=== PATIENT | female | born 1935 | race Caucasian/White ===

== ENCOUNTER 2016-03-11 11:55 | Emergency (ER) | payer MEDICARE ==
[~2016-03-11] VITALS: Ht 162.6 cm; Wt 72.6 kg
[~2016-03-11 11:55] MED LIST: ACHD5005 PO; AMOX-355 PO; BIOT5TAB PO; BPR150TCR PO; CALTRATE 600 +1 EACH PO; D-3 PO; LECITHIN PO; LOVA10TA PO; LUTE10TA PO; LVT.025T PO; LYSI600T PO; MAGNESIUM WITH ZINC PO; OMEG-12 PO; [UNRECOGNIZED DRUG - OTHER] PO
[2016-03-11] MEDS ORDERED: NS 1000 ML IV BAG IV ONE (12:15)
[2016-03-11] MEDS ORDERED: RT-ALBUTEROL/IPRATROPIUM 3 ML (DUONEB) VIAL INH ONE (12:15)
--- NOTE | 2016-03-11 12:15 | ED General ---
General Chief Complaint: Cough/Cold/Flu Symptoms Stated Complaint: COUGH/COLD/FLU SYMPTOMS Nursing Triage Note: PT C/O COUGH/CONGESTION/SOA X 1 WEEK. SHE STATES SHE HAS BEEN TAKING CEFTIN X 4 DAYS, BUT IS NOT GETTING BETTER. Nursing Sepsis Screen: No Definite Risk Source of Information: Patient, Family Exam Limitations: No Limitations History of Present Illness Time Seen by Provider: 12:14 Initial Comments Patient has been sick with a cough and congestion for one week. She was seen at urgent care a few days ago and prescribed Ceftin. She is only getting worse. She denies fevers or chills. She denies nausea vomiting or diarrhea. She is dyspneic. She denies chest pain. Allergies and Home Medications Allergies Coded Allergies: Soap (Verified Allergy, Intermediate, 10/12/11) blisters from topical application povidone-iodine (Verified Allergy, Intermediate, 10/12/11) blisters from topical application Iodine (Verified Allergy, Unknown, 10/09/11) Sulfa(Sulfonamide Antibiotics) (Verified Allergy, Unknown, 10/09/11) Home Medications 1 TAB PO DAILY (Reported) 1,000 MG PO DAILY (Reported) 400 MG PO DAILY (Reported) 1 TAB PO DAILY (Reported) Biotin 5 Mg Tablet 1,000 MG PO DAILY (Reported) Bupropion Hcl 150 Mg Tablet 1 TAB PO BID (Reported) Calcium Carbonate/Vitamin D3 1 Each Tab.chew 1 EACH PO TID (Reported) Levothyroxine Sodium 25 Mcg Tab 75 MCG PO DAILY (Reported) Lutein 10 Mg Tablet 6 MG PO DAILY (Reported) Lysine 600 Mg Tablet 500 MG PO DAILY (Reported) [place]-3/Dha/Epa/Fish Oil 1 Each Capsule.dr 2 EACH PO DAILY (Reported) Constitutional: No chills, No fever, malaise weakness EENTM: nose congestion Respiratory: cough short of breath Cardiovascular: no symptoms reported Gastrointestinal: no symptoms reported Genitourinary: no symptoms reported All Other Systems Reviewed Negative Unless Noted: Yes Past Promanb-Exukgf-Fyvdai Hx Patient Social History Alcohol Use: Denies Use Recreational Drug Use: No Smoking Status: Former Smoker Recent Foreign Travel: No Contact w/Someone Who Travel: No Recent Infectious Disease Expo: No Recent Hopitalizations: No Physical Abuse Screen: No Sexual Abuse: No Immunizations Up To Date Tetanus Booster (TDap): More than 5yrs Date of Pneumonia Vaccine: Dec 26, 2011 Date of Influenza Vaccine: Dec 09, 2015 Surgeries HX Surgeries: Yes (R rotator cuff, d&c, ) Surgeries: Appendectomy, Arteriovenous Shunt Respiratory Hx Respiratory Disorders: No Cardiovascular Hx Cardiac Disorders: Yes Neurological Hx Neurological Disorders: Yes Genitourinary Hx Genitourinary Disorders: No Gastrointestinal Hx Gastrointestinal Disorders: No Musculoskeletal Hx Musculoskeletal Disorders: Yes (GENERALIZED PAIN ALL THE TIME) Endocrine Hx Endocrine Disorders: Yes Endocrine Disorders: Hypothyroidsim HEENT HX ENT Disorders: Yes HEENT Disorders: Cataract Psychosocial Hx Psychiatric Problems: Yes Blood Transfusions Hx Blood Disorders: No Reviewed Nursing Assessment Reviewed/Agree w Nursing PMH: Yes Physical Exam Vital Signs Vital Sign - Last 12Hours Capillary Refill : Less Than 3 Seconds General Appearance: WD/WN Mild Distress Other (ill-appearing) Eyes: Bilateral Eye EOMI, Bilateral Eye PERRL HEENT: Pharyngeal ErythemaNo Tonsillar Exudate, No Tonsillar Enlargement Neck: Supple Respiratory: Expiration Rales (rales left base) Wheezing Other (tachypnea) Cardiovascular: Regular Rate, Rhythm No Edema Gastrointestinal: Soft Back: Normal Inspection Extremity: Normal Inspection Normal Range of Motion Neurologic/Psychiatric: Alert Oriented x3 No Motor/Sensory Deficits Skin: Damp (warm) Progress/Results/Core Measures Results/Orders Lab Results Labs were reviewed, influenza negative Laboratory Tests Test 03/11/16 12:20 03/11/16 13:07 Range/Units Alanine Aminotransferase (ALT/SGPT) 15 0-55 U/L Albumin 3.3 3.2-4.5 G/DL Alkaline Phosphatase 48 40-136 U/L Anion Gap 8 5-14 MMOL/L Aspartate Amino Transf (AST/SGOT) 16 5-34 U/L BUN/Creatinine Ratio 16 Basophils # (Auto) 0.0 0.0-0.1 10^3/uL Basophils (%) (Auto) 0 0-10 % Blood Urea Nitrogen 14 7-18 MG/DL Calcium Level 8.9 8.5-10.1 MG/DL Carbon Dioxide Level 23 21-32 MMOL/L Chloride Level 107 98-107 MMOL/L Creatinine 0.89 0.60-1.30 MG/DL Eosinophils # (Auto) 0.1 0.0-0.3 10^3/uL Eosinophils (%) (Auto) 1 0-10 % Estimat Glomerular Filtration Rate > 60 Glucose Level 93 70-105 MG/DL Hematocrit 36 35-52 % Hemoglobin 12.2 11.5-16.0 G/DL Lactic Acid Level 0.9 0.5-2.0 MMOL/L Lymphocytes # (Auto) 2.2 1.0-4.0 X 10^3 Lymphocytes (%) (Auto) 19 12-44 % Mean Corpuscular Hemoglobin 30 25-34 PG Mean Corpuscular Hemoglobin Concent 34 32-36 G/DL Mean Corpuscular Volume 87 80-99 FL Mean Platelet Volume 10.0 7.4-10.4 FL Monocytes # (Auto) 1.3 H 0.0-1.0 X 10^3 Monocytes (%) (Auto) 12 0-12 % Neutrophils # (Auto) 8.1 H 1.8-7.8 X 10^3 Neutrophils (%) (Auto) 69 42-75 % Platelet Count 384 130-400 10^3/uL Potassium Level 3.8 3.6-5.0 MMOL/L Red Blood Count 4.14 L 4.35-5.85 10^6/uL Red Cell Distribution Width 15.3 H 10.0-14.5 % Sodium Level 138 135-145 MMOL/L Total Bilirubin 0.4 0.1-1.0 MG/DL Total Protein 6.9 6.4-8.2 G/DL White Blood Count 11.7 H 4.3-11.0 10^3/uL Micro Results Microbiology 03/11/16 Influenza Types A,B Antigen (REBECCA) - Final, Complete My Orders Orders-GOLDIE PEREIRA MD Influenza A And B Antigens (03/11/16 12:00) Cbc With Automated Diff (03/11/16 12:11) Comprehensive Metabolic Panel (03/11/16 12:11) Lactic Acid Analyzer (03/11/16 12:11) Ua Culture If Indicated (03/11/16 12:11) Chest 1 View, Ap/Pa Only (03/11/16 12:11) Albuterol/Ipra Inhalation Soln (Duoneb I (03/11/16 12:15) Svn Sm Volume Nebulizer Rt-Rfs (03/11/16 12:11) Blood Culture (03/11/16 12:11) Ns Iv 1000 Ml (Sodium Chloride 0.9%) (03/11/16 12:15) Acetaminophen Tablet (Tylenol Tablet) (03/11/16 12:30) Saline Lock/Iv-Start (03/11/16 12:32) Ceftriaxone Injection (Rocephin Injectio (03/11/16 13:15) Medications Given in ED Current Medications Medications Dose Ordered Sig/Enmanuel Route Start Time Stop Time Status Last Admin Dose Admin Acetaminophen 1,000 mg ONCE ONCE PO 03/11/16 12:30 03/11/16 12:31 DC 03/11/16 12:30 1,000 MG Albuterol/ Ipratropium 3 ml ONCE ONCE INH 03/11/16 12:15 03/11/16 12:16 DC 03/11/16 12:32 3 ML Sodium Chloride 1,000 ml ONCE ONCE IV 03/11/16 12:15 03/11/16 12:16 DC 03/11/16 12:30 1,000 ML Vital Signs/I&O Vital Sign - Last 12Hours 03/11/16 03/11/16 03/11/16 12:00 12:00 12:32 Temp 97.6 Pulse 77 Resp 20 B/P 128/63 Pulse Ox 94 94 O2 Delivery Room Air Room Air Blood Pressure Mean: 84 Progress Note : Time: 13:20 Progress Note Patient says she feels better and was actually asleep while energy room. She does not look much better to me and seems to be having some labored respirations. I recommended admission to the hospital. Patient adamantly refused. I spoke with Dr. Sanz who will see the patient in the morning. Diagnostic Imaging Comments Chest x-ray showed nothing acute Departure Impression Impression: Primary Impression: Acute bronchitis Qualified Code: J20.9 - Acute bronchitis, unspecified Disposition: 01 HOME, SELF-CARE Condition: Stable Departure-Patient Inst. Decision time for Depature: 13:19 Referrals: HUGO SANZ MD (PCP/Family) Primary Care Physician Patient Instructions: Acute Bronchitis, Adult (DC) Add. Discharge Instructions: See Dr. Sanz tomorrow at 11 a.m. Stop Ceftin. All discharge instructions reviewed with patient and/or family. Voiced understanding. Scripts Azithromycin (Zithromax)250 Mg [id number] Mg PO UD #6 TAB TAKE 2 TABLETS TODAY, THEN TAKE 1 TABLET DAILY FOR 4 MORE DAYS Prov:GOLDIE PEREIRA MD 03/11/16 Albuterol Sulfate (Proair Hfa)8.5 Gm Hfa.aer.ad1-2 Puff IH Q4H PRN WHEEZING #1 INH Prov:GOLDIE PEREIRA MD 03/11/16 GOLDIE PEREIRA MD Mar 11, 2016 12:15
[2016-03-11] MEDS ORDERED: ACETAMINOPHEN 500 MG TAB (TYLENOL) PO ONE (12:30)
[2016-03-11 12:31] LABS: BASOPHILS % (AUTO) 0 % (0-10); EOSINOPHILS # (AUTO) 0.1 10^3/uL (0.0-0.3); EOSINOPHILS % (AUTO) 1 % (0-10); LYMPHOCYTES # (AUTO) 2.2 X 10^3 (1.0-4.0); LYMPHOCYTES % (AUTO) 19 % (12-44); MEAN CORPUSCULAR HEMOGLOBIN 30 PG (25-34); MEAN CORPUSCULAR HGB CONC 34 G/DL (32-36); MEAN CORPUSCULAR VOLUME 87 FL (80-99); MONOCYTES # (AUTO) 1.3 X 10^3 (0.0-1.0); MONOCYTES % (AUTO) 12 % (0-12); NEUTROPHILS # (AUTO) 8.1 X 10^3 (1.8-7.8); NEUTROPHILS % (AUTO) 69 % (42-75); PLATELET COUNT 384 10^3/uL (130-400); RED BLOOD COUNT 4.14 10^6/uL (4.35-5.85); RED CELL DISTRIBUTION WIDTH 15.3 % (10.0-14.5); WHITE BLOOD COUNT 11.7 10^3/uL (4.3-11.0)
[2016-03-11 12:53] LABS: ALANINE AMINOTRANSFERASE 15 U/L (0-55); ALBUMIN 3.3 G/DL (3.2-4.5); ANION GAP 8 MMOL/L (5-14); ASPARTATE AMINO TRANSFERASE 16 U/L (5-34); BILIRUBIN,TOTAL 0.4 MG/DL (0.1-1.0); BLOOD UREA NITROGEN 14 MG/DL (7-18); BUN/CREATININE RATIO 16; CALCIUM 8.9 MG/DL (8.5-10.1); CARBON DIOXIDE 23 MMOL/L (21-32); CHLORIDE 107 MMOL/L (98-107); CREATININE SERUM 0.89 MG/DL (0.60-1.30); GFR ESTIMATED > 60; GLUCOSE 93 MG/DL (70-105); POTASSIUM 3.8 MMOL/L (3.6-5.0); SODIUM 138 MMOL/L (135-145); TOTAL PROTEIN 6.9 G/DL (6.4-8.2)
--- NOTE | 2016-03-11 13:07 | Diagnostic Imaging Report ---
Portable upright radiograph of the chest. INDICATION: Cough. FINDINGS: The lungs demonstrate interstitial thickening less prominent compared to 10/13/2011 exam, probably chronic. There is pulmonary hyperinflation. The heart size is near the upper limits of normal. No effusion or pneumothorax. The mediastinum and selena appear unremarkable. Shunt tube is seen across the right thorax. IMPRESSION: No acute process. Dictated by: Dictated on workstation # [id number]
[2016-03-11 13:14] LABS: BILIRUBIN,URINE NEGATIVE (NEGATIVE); KETONES,URINE NEGATIVE (NEGATIVE); LEUKOCYTE ESTERASE ,URINE 2+ (NEGATIVE); NITRITE,URINE NEGATIVE (NEGATIVE); PH,URINE 6.5 (5-9); PROTEIN,URINE NEGATIVE (NEGATIVE); UROBILINOGEN,URINE NORMAL (NORMAL)
[2016-03-11] MEDS ORDERED: cefTRIAXone INJECTION 1,000 MG in NORMAL SALINE (BAXTER MINI) 50 ML IV ONE (13:15)
[2016-03-11] MEDS ORDERED: RT-ALBUINH IH (13:20)
[2016-03-11] MEDS ORDERED: AZIT250T PO (13:20)
[2016-03-11 13:27] LABS: SQUAMOUS EPITHELIAL CELL,UR 0-2 /HPF; WBC,URINE 0-2 /HPF
[2016-03-11 13:58] VITALS: BP 125/70
== END 2016-03-11 13:58 | disposition home or self-care (01) ==
LOC: EDUNIT# 11:55 → ER 11:57
DX: J20.9 Acute bronchitis, unspecified (principal)
CPT/HCPCS: 36415; 71010; 80053; 81000; 83605; 85025; 87040; 87804; 96361; 96365

== ENCOUNTER 2017-08-08 16:44 | Emergency (ER) | payer MEDICARE ==
[~2017-08-08] VITALS: Ht 167.6 cm; Wt 77.1 kg
[~2017-08-08 16:44] MED LIST changes: +AZIT250T PO; +RT-ALBUINH IH
[2017-08-08 17:46] LABS: BASOPHILS % (AUTO) 0 % (0-10); EOSINOPHILS % (AUTO) 0 % (0-10); HEMATOCRIT 39 % (35-52); HEMOGLOBIN 13.2 G/DL (11.5-16.0); LYMPHOCYTES % (AUTO) 10 % (12-44); MEAN CORPUSCULAR HEMOGLOBIN 31 PG (25-34); MEAN CORPUSCULAR HGB CONC 34 G/DL (32-36); MEAN CORPUSCULAR VOLUME 90 FL (80-99); MEAN PLATELET VOLUME 10.4 FL (7.4-10.4); MONOCYTES % (AUTO) 11 % (0-12); NEUTROPHILS # (AUTO) 7.9 X 10^3 (1.8-7.8); NEUTROPHILS % (AUTO) 80 % (42-75); PLATELET COUNT 294 10^3/uL (130-400); RED CELL DISTRIBUTION WIDTH 14.8 % (10.0-14.5); WHITE BLOOD COUNT 9.9 10^3/uL (4.3-11.0)
[2017-08-08] MEDS ORDERED: ONDANSETRON 4 MG/2 ML (SDV) Z0FRAN IVP ONE (18:00)
[2017-08-08 18:05] LABS: INR 1.1 (0.8-1.4); PROTHROMBIN TIME PATIENT 14.5 SEC (12.2-14.7)
[2017-08-08 18:14] LABS: ALBUMIN 4.2 GM/DL (3.2-4.5); BILIRUBIN,TOTAL 0.4 MG/DL (0.1-1.0); CREATININE SERUM 1.18 MG/DL (0.60-1.30); POTASSIUM 4.4 MMOL/L (3.6-5.0); TOTAL PROTEIN 7.7 GM/DL (6.4-8.2)
--- NOTE | 2017-08-08 18:22 | ED Respiratory ---
General Chief Complaint: Abdominal/GI Problems Stated Complaint: N/V Nursing Triage Note: Pt escorted to ED by son and ; chief c/o N/V along with stomach bloating, dizzy (chronic vertigo like sx) and cough. History of Present Illness Date Seen by Provider: Aug 08, 2017 Time Seen by Provider: 17:30 Initial Comments 82-year-old female seen for vertigo, nausea, vomiting and productive cough. She reports her symptoms of been progressively getting worse. Today her nausea and vertigo were significant enough that it required her son and his to assist her with ambulating out of the house. 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 Leon in [place], [place]. Timing/Duration: getting worse Severity: mild Prior Episodes/Possible Cause: occasional episodes Modifying Factors: Improves With Rest Associated Symptoms: cough, dizziness, earache, headache, lightheadedness, nasal congestion, nasal drainage, sore throat, other (urinary frequency and dysuria) Allergies and Home Medications Allergies Coded Allergies: Soap (Verified Allergy, Intermediate, 10/12/11) blisters from topical application povidone-iodine (Verified Allergy, Intermediate, 10/12/11) blisters from topical application Sulfa (Sulfonamide Antibiotics) (Verified Allergy, Unknown, 10/09/11) iodine (Verified Allergy, Unknown, 10/09/11) Home Medications Albuterol Sulfate 8.5 Gm Hfa.aer.ad, 1-2 PUFF IH Q4H PRN for WHEEZING Prescribed by: GOLDIE PEREIRA on 03/11/16 1320 Amoxicillin/Potassium Clav 1 Each Tablet, 1 EACH PO BID Prescribed by: INDU HIGGINS on 08/08/17 1939 Biotin 5 Mg Tablet, 1,000 MG PO DAILY, (Reported) Bupropion Hcl 150 Mg Tablet, 1 TAB PO BID, (Reported) Calcium Carbonate/Vitamin D3 1 Each Tab.chew, 1 EACH PO TID, (Reported) Levothyroxine Sodium 25 Mcg Tab, 75 MCG PO DAILY, (Reported) Lutein 10 Mg Tablet, 6 MG PO DAILY, (Reported) Lysine 600 Mg Tablet, 500 MG PO DAILY, (Reported) [place]-3/Dha/Epa/Fish Oil 1 Each Capsule.dr, 2 EACH PO DAILY, (Reported) Prednisone 20 Mg Tab, 40 MG PO DAILY Prescribed by: INDU HIGGINS on 08/08/171938 [D-3] , 1,000 MG PO DAILY, (Reported) [E 200] , 1 TAB PO DAILY, (Reported) [Lecithin] , 400 MG PO DAILY, (Reported) [Magnesium With Zinc] , 1 TAB PO DAILY, (Reported) Patient Home Medication List Home Medication List Reviewed: Yes Review of Systems Constitutional: no symptoms reported, see HPI Respiratory: see HPI, cough Genitourinary: see HPI, dysuria, frequency Musculoskeletal: no symptoms reported, see HPI Psychiatric/Neurological: No Symptoms Reported, See HPI All Other Systems Reviewed Negative Unless Noted: Yes Past Nvhsrmx-Lcpevt-Gqkjun Hx Past Med/Social Hx: Reviewed Nursing Past Med/Soc Hx Patient Social History Alcohol Use: Denies Use Recreational Drug Use: No Smoking Status: Never a Smoker 2nd Hand Smoke Exposure: No Recent Foreign Travel: No Contact w/Someone Who Travel: No Recent Infectious Disease Expo: No Recent Hopitalizations: No Immunizations Up To Date Tetanus Booster (TDap): More than 5yrs Date of Pneumonia Vaccine: Dec 26, 2011 Date of Influenza Vaccine: Dec 09, 2015 Seasonal Allergies Seasonal Allergies: No Past Medical History Surgeries: Yes (R rotator cuff, d&c, ) Appendectomy, Arteriovenous Shunt Respiratory: No Cardiac: Yes High Cholesterol 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) Genitourinary: Yes (CKD) Gastrointestinal: No Musculoskeletal: Yes (chronic generalized pain) Endocrine: Yes Hypothyroidsim Cataract Cancer: No Psychosocial: Yes Depression Integumentary: No Blood Disorders: No Adverse Reaction/Blood Tranf: No Physical Exam Vital Signs Vital Signs - First Documented 08/08/17 08/08/17 17:10 17:30 Temp 100.3 Pulse 92 Resp 18 B/P (MAP) 129/66 (87) Pulse Ox 92 O2 Delivery Room Air O2 Flow Rate 2.00 FiO2 95 Capillary Refill : Less Than 3 Seconds General Appearance: WD/WN, no apparent distress Eyes: Left Eye Other (scar noted to left pupil, patient reports it has been there since she was 8 years old and does not interfere with vision.); Bilateral Eye Normal Inspection, Bilateral Eye PERRL, Bilateral Eye EOMI HEENT: PERRL/EOMI, normal ENT inspection, pharynx normal, TM abnormal (R), TM abnormal (L), pharyngeal erythema; No tonsillar exudate; other (bilateral TMs with clear effusion present) Neck: non-tender, full range of motion, supple, normal inspection; No lymphadenopathy (R), No lymphadenopathy (L) Respiratory: chest non-tender, lungs clear, normal breath sounds Cardiovascular: normal peripheral pulses, regular rate, rhythm, no murmur Gastrointestinal: normal bowel sounds, non tender, soft Neurologic/Psychiatric: 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 as tested, no motor/sensory deficits, alert, normal mood/affect, oriented x 3 Skin: normal color, warm/dry Lymphatic: no adenopathy Focused Exam Lactate Level 08/08/17 17:30: Lactic Acid Level 1.30 Lactic Acid Level Laboratory Tests Test 08/08/17 17:30 Lactic Acid Level 1.30 MMOL/L (0.50-2.00) Progress/Results/Core Measures Suspected Sepsis Recent Fever Within 48 Hours: Yes Infection Criteria Present: Suspected New Infection New/Unexplained Altered Menta: No Sepsis Screen: Possible Sepsis Risk SIRS Temperature:100.3 Pulse: 92 Respiratory Rate: 18 Laboratory Tests 08/08/17 17:30: White Blood Count 9.9 Blood Pressure 129 /66 Mean: 87 08/08/17 17:30: Lactic Acid Level 1.30 Laboratory Tests 08/08/17 17:30: Creatinine 1.18, INR Comment 1.1, Platelet Count 294, Total Bilirubin 0.4 Results/Orders Lab Results Laboratory Tests Test 08/08/17 17:30 08/08/17 18:23 Range/Units White Blood Count 9.9 4.3-11.0 10^3/uL Red Blood Count 4.30 L 4.35-5.85 10^6/uL Hemoglobin 13.2 11.5-16.0 G/DL Hematocrit 39 35-52 % Mean Corpuscular Volume 90 80-99 FL Mean Corpuscular Hemoglobin 31 25-34 PG Mean Corpuscular Hemoglobin Concent 34 32-36 G/DL Red Cell Distribution Width 14.8 H 10.0-14.5 % Platelet Count 294 130-400 10^3/uL Mean Platelet Volume 10.4 7.4-10.4 FL Neutrophils (%) (Auto) 80 H 42-75 % Lymphocytes (%) (Auto) 10 L 12-44 % Monocytes (%) (Auto) 11 0-12 % Eosinophils (%) (Auto) 0 0-10 % Basophils (%) (Auto) 0 0-10 % Neutrophils # (Auto) 7.9 H 1.8-7.8 X 10^3 Lymphocytes # (Auto) 1.0 1.0-4.0 X 10^3 Monocytes # (Auto) 1.0 0.0-1.0 X 10^3 Eosinophils # (Auto) 0.0 0.0-0.3 10^3/uL Basophils # (Auto) 0.0 0.0-0.1 10^3/uL Prothrombin Time 14.5 12.2-14.7 SEC INR Comment 1.1 0.8-1.4 Activated Partial Thromboplast Time 34 24-35 SEC Sodium Level 136 135-145 MMOL/L Potassium Level 4.4 3.6-5.0 MMOL/L Chloride Level 104 98-107 MMOL/L Carbon Dioxide Level 18 L 21-32 MMOL/L Anion Gap 14 5-14 MMOL/L Blood Urea Nitrogen 12 7-18 MG/DL Creatinine 1.18 0.60-1.30 MG/DL Estimat Glomerular Filtration Rate 44 BUN/Creatinine Ratio 10 Glucose Level 141 H 70-105 MG/DL Lactic Acid Level 1.30 0.50-2.00 MMOL/L Calcium Level 9.0 8.5-10.1 MG/DL Total Bilirubin 0.4 0.1-1.0 MG/DL Aspartate Amino Transf (AST/SGOT) 26 5-34 U/L Alanine Aminotransferase (ALT/SGPT) 19 0-55 U/L Alkaline Phosphatase 66 40-136 U/L Total Protein 7.7 6.4-8.2 GM/DL Albumin 4.2 3.2-4.5 GM/DL Urine Color YELLOW Urine Clarity CLEAR Urine pH 5 5-9 Urine Specific [place] 1.020 1.016-1.022 Urine Protein 2+ H NEGATIVE Urine Glucose (UA) NEGATIVE NEGATIVE Urine Ketones 3+ H NEGATIVE Urine Nitrite NEGATIVE NEGATIVE Urine Bilirubin NEGATIVE NEGATIVE Urine Urobilinogen NORMAL NORMAL MG/DL Urine Leukocyte Esterase NEGATIVE NEGATIVE Urine RBC (Auto) 1+ H NEGATIVE Urine RBC 10-25 H /HPF Urine WBC 2-5 /HPF Urine Squamous Epithelial Cells RARE /HPF Urine Renal Epithelial Cells NONE /HPF Urine Crystals NONE /LPF Urine Bacteria TRACE /HPF Urine Casts PRESENT /LPF Urine Hyaline Casts 5-10 H /LPF Urine Granular Casts RARE /LPF Urine Mucus LARGE H /LPF Urine Culture Indicated NO My Orders Orders - INDU HIGGINS Cbc With Automated Diff (08/08/17 17:40) Comprehensive Metabolic Panel (08/08/17 17:40) Lactic Acid Analyzer (08/08/17 17:40) Blood Culture (08/08/17 17:40) Ua Culture If Indicated (08/08/17 17:40) Protime With Inr (08/08/17 17:40) Partial Thromboplastin Time (08/08/17 17:40) Chest 1 View, Ap/Pa Only (08/08/17 17:40) O2 (08/08/17 17:40) Saline Lock/Iv-Start (08/08/17 17:40) Vital Signs Adult Sepsis Patie Q1H (08/08/17 17:40) Remove Rings In Anticipation O (08/08/17 17:40) Ondansetron Injection (Zofran Injectio (08/08/17 18:00) Ct Head Wo (08/08/17 18:10) Abdomen/Kub 1view (08/08/17 18:14) Meclizine Tablet (Antivert Tablet) (08/08/17 18:30) Rx-Albuterol Inhaler (Rx-Proair) (08/08/17 19:12) Rx-Amoxicillin/Clav Tab (Rx-Augmentin Ta (08/08/17 19:12) Saline Lock/Iv-Start (08/08/17 19:13) Ns Iv 500 Ml (Sodium Chloride 0.9%) (08/08/17 19:13) Dexamethasone Injection (Decadron Inject (08/08/17 19:15) Medications Given in ED Current Medications Medications Dose Ordered Sig/Enmanuel Route Start Time Stop Time Status Last Admin Dose Admin Dexamethasone Sodium Phosphate 10 mg ONCE ONCE IV 08/08/17 19:15 08/08/17 19:16 DC 08/08/17 19:22 10 MG Meclizine HCl 25 mg ONCE ONCE PO 08/08/17 18:30 08/08/17 18:31 DC 08/08/17 19:22 25 MG Ondansetron HCl 4 mg ONCE ONCE IVP 08/08/17 18:00 08/08/17 18:01 DC 08/08/17 18:08 4 MG Sodium Chloride 500 ml @ 0 mls/hr Q0M ONCE IV 08/08/17 19:13 08/08/17 19:14 DC 08/08/17 19:22 0 MLS/HR Vital Signs/I&O 08/08/17 08/08/17 08/08/17 08/08/17 17:10 17:30 20:05 20:05 Temp 100.3 99.1 99.1 Pulse 92 86 86 Resp 18 18 18 B/P (MAP) 129/66 (87) 125/50 (87) 125/50 Pulse Ox 92 95 96 96 O2 Delivery Room Air Nasal Cannula Room Air O2 Flow Rate 2.00 FiO2 95 Capillary Refill : Less Than 3 Seconds Blood Pressure Mean: 87 Progress Note : Time: 17:30 Progress Note Initial evaluation completed, recommended sepsis workup, CT head and x-rays of abdomen. Zofran 4 mg IV or nausea. Will hold on giving any IV fluids until CT results are completed. 1829 CT head negative, chest x-ray show right early consolidation in the lower lobe, abdomen x-ray shows no kinks in the SENIOR SHAREPOINT DEVELOPER shunt, results were discussed with the patient and her family. She reports the nausea has improved. She continues to have vertigo, will give meclizine 25 mg orally. 1914 UA shows positive ketones, will give normal saline 500 mL IV for hydration. Guest option for admission versus home treatment, the patient and her family felt they could manage at home. Her dizziness has improved, and her dcqqiuei-ip-sac is available to stay with her in her home to assist with her care. She understands the risk of falls and will take all precautions to prevent this from happening. 1929 discharge instructions and return precautions reviewed with the patient and her family. All questions answered. Diagnostic Imaging [facility]: Xray Plain Films/CT/US/NM/MRI: chest Comments NAME: JAIRO LINCOLN Jeannine [facility] REC#: [id number] PT STATUS: REG ER : 1935 PHYSICIAN: INDU HIGGINS ADMIT DATE: 08/08/17/ER Draft Date of Exam:08/08/17 CHEST 1 VIEW, AP/PA ONLY INDICATION: Nausea, vomiting, dizziness, cough. TECHNIQUE: Single view chest, 5:55 p.m. CORRELATION STUDY: 03/11/2016. FINDINGS: Heart size, mediastinum and vasculature are overall generally stable. Shunt tubing over the right chest. There may be a small hiatal hernia present. Lung gifford demonstrate slight patchy infiltrate developing over the right costophrenic angle. Remaining lung gifford are otherwise stable. IMPRESSION: Suspect for small patchy infiltrate developing in the right costophrenic angle. Dictated on workstation # [id number] Dict: 08/08/17 1811 Trans: 08/08/17 1829 [facility] [id number] Interpreted by: WILFRID PALOMO DO Electronically signed by: Diagonstic Imaging: CT Comments NAME: LATONIAJAIRO [employer] REC#: [id number] PT STATUS: REG ER : 1935 PHYSICIAN: INDU HIGGINS ADMIT DATE: 08/08/17/ER Draft Date of Exam:08/08/17 CT HEAD WO PROCEDURE: CT head without contrast. TECHNIQUE: Multiple contiguous axial images were obtained through the brain without the use of intravenous contrast. INDICATION: Dizziness. CORRELATION STUDY: 10/13/2011. FINDINGS: Since prior study, a shunt tube has been placed from the right parieto-occipital region. Shunt tubing courses through the majority of right lateral ventricle tip terminating near midline along the septum. The lateral ventricles are dilated, maximum transverse dimension is 3.9 cm, previously 4.4 cm. No midline shift. Scattered areas of decreased attenuation, while nonspecific, would favor likely changes of small vessel ischemic disease. No intracranial hemorrhage. Basilar cisterns are maintained. IMPRESSION: Interval placement of a right posterior shunt tube since prior study. Lateral ventricles are mildly dilated but overall appear less severe from prior imaging. Likely chronic changes of small vessel ischemic disease or senescent type changes of the brain parenchyma. Dictated on workstation # [id number] Dict: 08/08/17 1836 Trans: 08/08/17 1842 [facility] [id number] Interpreted by: WILFRID PALOMO DO Electronically signed by: Reviewed: Reviewed by Ri Diagonstic Imaging: Xray Plain Films/CT/US/NM/MRI: abdomen Comments NAME: JAIRO LINCOLN MED REC#: [id number] PT STATUS: REG ER : 1935 PHYSICIAN: INDU HIGGINS ADMIT DATE: 08/08/17/ER Draft Date of Exam:08/08/17 ABDOMEN/KUB 1VIEW INDICATION: Nausea, vomiting, dizziness. TECHNIQUE: Two supine view of the abdomen, 6:59 p.m. CORRELATION STUDY: None. FINDINGS: Shunt tubing is noted over the right abdomen, tip terminating in midline pelvis. Bowel gas pattern demonstrates mild severity fecal retention. No evidence for underlying bowel obstruction. Slight disproportionate gas distention of the transverse colon can be seen with regional ileus. 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 Dictated on workstation # [id number] Dict: 08/08/171846 Trans: 08/08/171853 [facility] [id number] Interpreted by: WILFRID PALOMO DO Electronically signed by: Reviewed: Reviewed by Me Departure Impression Primary Impression: Right lower lobe pneumonia Qualified Codes: J18.1 - Lobar pneumonia, unspecified organism Additional Impression: Vertigo Disposition: HOME, SELF-CARE Condition: Improved Departure-Patient Inst. Decision time for Depature: 19:15 Referrals: HUGO LOZADA MD (PCP/Family) Primary Care Physician Patient Instructions: Community-Acquired Pneumonia in Adults, Vertigo (a Type of Dizziness) (DC) Add. Discharge Instructions: Increase fluid intake. Change positions slowly, especially moving from lying to standing. Sit and stretch legs before standing. Continue to use your Meclizine for vertigo every 6 hours. Take medication as directed. You may use Tylenol 650 mg every 4 hours alternating with ibuprofen 600 mg for fever or pain. Follow-up with Dr. LOZADA in 2-3 days, sooner if symptoms are not improving. Use the inhaler 2 puffs every 4 hours. Return to emergency department for fever greater than 101 not relieved by Tylenol or ibuprofen, difficulty breathing, or new health care problems. All discharge instructions reviewed with patient and/or family. Voiced understanding. Scripts Prednisone (Prednisone) 20 Mg Tab 40 MG PO DAILY, #6 TAB 0 Refills Prov: INDU HIGGINS 08/08/17 Amoxicillin/Potassium Clav (Augmentin 875-125 Tablet) 1 Each Tablet 1 EACH PO BID, #20 TAB 0 Refills Prov: INDU HIGGINS 08/08/17 Copy Copies To 1: HUGO LOZADA MD, AMY ARNP Aug 08, 2017 18:22
[2017-08-08] MEDS ORDERED: MECLIZINE 25 MG (ANTIVERT) TAB PO ONE (18:30)
--- NOTE | 2017-08-08 18:30 | Diagnostic Imaging Report ---
INDICATION: Nausea, vomiting, dizziness, cough. TECHNIQUE: Single view chest, 5:55 p.m. CORRELATION STUDY: 03/11/2016. FINDINGS: Heart size, mediastinum and vasculature are overall generally stable. Shunt tubing over the right chest. There may be a small hiatal hernia present. Lung gifford demonstrate slight patchy infiltrate developing over the right costophrenic angle. Remaining lung gifford are otherwise stable. IMPRESSION: Suspect for small patchy infiltrate developing in the right costophrenic angle. Dictated by: Dictated on workstation # [id number]
[2017-08-08 18:31] LABS: BILIRUBIN,URINE NEGATIVE (NEGATIVE); CLARITY,URINE CLEAR; COLOR,URINE YELLOW; GLUCOSE, URINE (UA) NEGATIVE (NEGATIVE); KETONES,URINE 3+ (NEGATIVE); LEUKOCYTE ESTERASE ,URINE NEGATIVE (NEGATIVE); NITRITE,URINE NEGATIVE (NEGATIVE); PH,URINE 5 (5-9); PROTEIN,URINE 2+ (NEGATIVE); UROBILINOGEN,URINE NORMAL (NORMAL)
--- NOTE | 2017-08-08 18:43 | Diagnostic Imaging Report ---
PROCEDURE: CT head without contrast. TECHNIQUE: Multiple contiguous axial images were obtained through the brain without the use of intravenous contrast. INDICATION: Dizziness. CORRELATION STUDY: 10/13/2011. FINDINGS: Since prior study, a shunt tube has been placed from the right parieto-occipital region. Shunt tubing courses through the majority of right lateral ventricle tip terminating near midline along the septum. The lateral ventricles are dilated, maximum transverse dimension is 3.9 cm, previously 4.4 cm. No midline shift. Scattered areas of decreased attenuation, while nonspecific, would favor likely changes of small vessel ischemic disease. No intracranial hemorrhage. Basilar cisterns are maintained. IMPRESSION: Interval placement of a right posterior shunt tube since prior study. Lateral ventricles are mildly dilated but overall appear less severe from prior imaging. Likely chronic changes of small vessel ischemic disease or senescent type changes of the brain parenchyma. Dictated by: Dictated on workstation # [id number]
[2017-08-08 18:49] LABS: BACTERIA,URINE TRACE /HPF; SQUAMOUS EPITHELIAL CELL,UR RARE /HPF
[2017-08-08 18:50] LABS: GRANULAR CASTS,URINE RARE /LPF
--- NOTE | 2017-08-08 18:54 | Diagnostic Imaging Report ---
INDICATION: Nausea, vomiting, dizziness. TECHNIQUE: Two supine view of the abdomen, 6:59 p.m. CORRELATION STUDY: None. FINDINGS: Shunt tubing is noted over the right abdomen, tip terminating in midline pelvis. Bowel gas pattern demonstrates mild severity fecal retention. No evidence for underlying bowel obstruction. Slight disproportionate gas distention of the transverse colon can be seen with regional ileus. 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 Dictated by: Dictated on workstation # [id number]
[2017-08-08] MEDS ORDERED: RX-ALBUTEROL INHALER (PROAIR) 8 GM IH STA (19:12)
[2017-08-08] MEDS ORDERED: RX-AMOX/CLAV. (AUGMENTIN) 500MG TAB PPK#2 PO STA (19:12)
[2017-08-08] MEDS ORDERED: NS IV 500 ML 500 ML IV ONE (19:13)
[2017-08-08] MEDS ORDERED: DEXAMETHASONE 10 MG/ML (DECADRON) 1 ML VIAL IV ONE (19:15)
[2017-08-08] MEDS ORDERED: AMOX-358 PO (19:39)
[2017-08-08] MEDS ORDERED: PRD20T PO (19:39)
[2017-08-08 20:05] VITALS: BP 125/50
== END 2017-08-08 20:05 | disposition home or self-care (01) ==
LOC: EDUNIT# 16:44 → ER 16:46
DX: J18.1 Lobar pneumonia, unspecified organism (principal); R42 Dizziness and giddiness; E78.00 Pure hypercholesterolemia, unspecified; F32.9 Major depressive disorder, single episode, unspecified; E03.9 Hypothyroidism, unspecified; N18.9 Chronic kidney disease, unspecified; Z90.49 Acquired absence of other specified parts of digestive tract; Z95.828 Presence of other vascular implants and grafts; Z88.2 Allergy status to sulfonamides; Z91.041 Radiographic dye allergy status
CPT/HCPCS: 36415; 51702; 70450; 71045; 74018; 80053; 81000; 83605; 85025; 85610; 85730; 87040; 96361; 96374; 96375

== ENCOUNTER 2021-01-15 12:25 | Inpatient (IN) | payer MEDICARE ==
[~2021-01-15] VITALS: Ht 162.6 cm; Wt 63.6 kg
[~2021-01-15 12:25] MED LIST changes: +AMOX-358 PO; +PRD20T PO
[2021-01-15 12:55] VITALS: BP 146/67
[2021-01-15] MEDS ORDERED: morphine INJ 10 MG/ML 1ML (SYR OR VIAL) IVP STA (13:05)
[2021-01-15] MEDS ORDERED: morphine INJ 4 MG/ML 1 ML (VIAL/SYRINGE) ONE (13:05)
[2021-01-15] MEDS: NS IV 1000 ML 1,000 ML IV SCH ×2 (13:12→21:21)
--- NOTE | 2021-01-15 13:13 | History & Physical ---
History of Present Illness History of Present Illness Reason for visit/HPI JAIRO IS AN 85 Y/O FEMALE WHO IS KNOWN TO ME FROM CLINIC. SHE PRESENTED TO THE OFFICE TODAY WITH COMPLAINT OF ACUTE BACK PAIN AFTER SWEEPING THE FLOOR. SHE WAS IN A TREMENDOUS AMOUNT OF PAIN AND WAS UNABLE TO AMBULATE PER HER USUAL INTO OR OUT OF THE OFFICE. SHE WAS THEREFORE ADMITTED TO THE HOSPITAL BECAUSE HER PAIN HAD BECOME SO ROBUST THAT SHE WAS HAVING INTRACTABLE NAUSEA AND EMESIS FROM UNCONTROLLED PAIN. SHE INITIALLY DID NOT WANT ADMISSION, BUT AFTER MOVING ABOUT A LITTLE MORE IN THE OFFICE GETTING UP FROM THE TOILET AFTER PROVIDING A SPECIMEN FOR A UA, SHE WAS UNABLE TO TOLERATE THE PAIN AND AGREED TO ADMISSION FOR EVAL AND MONITORING AND IV PAIN MEDICATION FOR CONTROL OF HER PAIN. Date of Admission Jan 15, 2021 at 12:25 Date Seen by a Provider: Jan 15, 2021 Time Seen by a Provider: 12:20 Attending Physician Hugo Sanz MD Admitting Physician Hugo Sanz MD Consult Allergies and Home Medications Allergies Coded Allergies: Soap (Verified Allergy, Intermediate, 10/12/11) blisters from topical application povidone-iodine (Verified Allergy, Intermediate, 10/12/11) blisters from topical application Sulfa (Sulfonamide Antibiotics) (Verified Allergy, Unknown, 10/09/11) iodine (Verified Allergy, Unknown, 10/09/11) Patient Home Medication List Home Medication List Reviewed: Yes Albuterol Sulfate (Proair Hfa) 8.5 Gm Hfa.aer.ad, 1-2 PUFF IH Q4H PRN for WHEEZING Prescribed by: GOLDIE PEREIRA on 03/11/16 1320 Last Action: Held Amoxicillin/Potassium Clav (Augmentin 875-125 Tablet) 1 Each Tablet, 1 EACH PO BID Prescribed by: INDU HIGGINS on 08/08/17 1939 Last Action: Held Biotin (Biotin) 5 Mg Tablet, 1,000 MG PO DAILY, (Reported) Entered as Reported by: ARNULFO HARRY on 10/26/11 0958 Last Action: Held Bupropion Hcl (Wellbutrin Sr) 150 Mg Tablet, 1 TAB PO BID, (Reported) Entered as Reported by: MARGIE CHAVES on 10/09/11 1202 Last Action: Held Calcium Carbonate/Vitamin D3 (Caltrate 600 + D Chewable Tab) 1 Each Tab.chew, 1 EACH PO TID, (Reported) Entered as Reported by: ARNULFO HARRY on 10/26/11957 Last Action: Held Levothyroxine Sodium (Levothroid) 25 Mcg Tab, 75 MCG PO DAILY, (Reported) Entered as Reported by: MARGIE CHAVES on 10/09/111201 Last Action: Held Lutein (Lutein) 10 Mg Tablet, 6 MG PO DAILY, (Reported) Entered as Reported by: ARNULFO HARRY on 10/26/11957 Last Action: Held Lysine (L-Lysine) 600 Mg Tablet, 500 MG PO DAILY, (Reported) Entered as Reported by: ARNULFO HARRY on 10/26/11957 Last Action: Held Grelton-3/Dha/Epa/Fish Oil (Fish Oil 1,000 Mg Ec Softgel) 1 Each Capsule.dr, 2 EACH PO DAILY, (Reported) Entered as Reported by: ARNULFO HARRY on 10/26/11957 Last Action: Held Prednisone (Prednisone) 20 Mg Tab, 40 MG PO DAILY Prescribed by: INDU HIGGINS on 08/08/171938 Last Action: Held [D-3] , 1,000 MG PO DAILY, (Reported) Entered as Reported by: ARNULFO HARRY on 10/26/11957 Last Action: Held [E 200] , 1 TAB PO DAILY, (Reported) Entered as Reported by: ARNULFO HARRY on 10/26/11957 Last Action: Held [Lecithin] , 400 MG PO DAILY, (Reported) Entered as Reported by: ARNULFO HARRY on 10/26/11957 Last Action: Held [Magnesium With Zinc] , 1 TAB PO DAILY, (Reported) Entered as Reported by: ARNULFO HARRY on 10/26/11957 Last Action: Held Past Vkmyplo-Eswpwt-Jbptvt Hx Patient Social History Marrital Status: Living Status: LIVES IN HER HOME ALONE IN [place] Employed/Student: retired Tobacco Use?: No Smoking Status: Never a Smoker Use of E-Cig and/or Vaping dev: No Substance use?: No Alcohol Use?: No Immunizations Up To Date Date of Influenza Vaccine: Dec 09, 2015 Date of Pneumonia Vaccine: Dec 26, 2011 Seasonal Allergies Seasonal Allergies: No Current Status status: No Communicates: Verbally Primary Language: Tajik Preferred Spoken Language: Tajik Is interpretation needed?: No Implanted or Applied Medical D: Other ([employer]) Past Medical History Surgeries: Appendectomy, Neurological ([employer]) Currently Using CPAP: No Currently Using BIPAP: No 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: Menopausal Hypothyroidsim Cataract Loss of Vision: Denies Hearing Impairment: Denies Depression Blood Disorders: No Adverse Reaction/Blood Tranf: No Family Medical History Reviewed and Corrections made Hypertension Review of Systems Constitutional: No chills, No fever, No malaise; weakness EENTM: No hearing loss, No hoarseness, No throat pain Respiratory: No cough, No dyspnea on exertion, No short of breath Cardiovascular: No chest pain, No edema, No palpitations Gastrointestinal: No abdominal pain, No loss of appetite; nausea, vomiting Genitourinary: frequency Musculoskeletal: back pain, muscle pain, muscle weakness Skin: no symptoms reported Psychiatric/Neurological: Anxiety, Weakness All Other Systems Reviewed Negative Unless Noted: Yes Physical Exam Vital Signs Vital Signs - First Documented 01/15/21 12:55 Temp 35.8 Pulse 78 Resp 18 B/P (MAP) 146/67 (93) Pulse Ox 97 O2 Delivery Room Air Capillary Refill : Height, Weight, BMI Height: 5'6.00" Weight: 170lbs. oz. 77.053780dz; 27.46 BMI Method:Stated General Appearance: WD/WN, Moderate Distress (DUE TO PAIN) HEENT: Pharynx Normal, Other (CATARACT/INJURY TO LEFT CORNEA) Neck: Full Range of Motion, Supple, Other (PALPABLE [employer] TUBING IN RIGHT NECK) Respiratory: Chest Non Tender, Lungs Clear, Normal Breath Sounds, No Accessory Muscle Use, No Respiratory Distress Cardiovascular: Regular Rate, Rhythm, Normal Peripheral Pulses Gastrointestinal: Normal Bowel Sounds, No Organomegaly, No Pulsatile Mass, Non Tender, Soft Rectal: Deferred Back: Normal Inspection, Vertebral Tenderness (LUMBAR SPINE FROM L2 - L4) Extremity: Normal Capillary Refill, Normal Range of Motion, Non Tender, No Calf Tenderness, No Pedal Edema Neurologic/Psychiatric: Alert, Oriented x3, No Motor/Sensory Deficits, Normal Mood/Affect Skin: Normal Color, Warm/Dry Lymphatic: No Adenopathy Assessment/Plan Assessment and Plan LUMBAR SPINE PAIN LUMBAR SPINE L2 - L5 - SPINAL STENOSIS WITH VARYING LEVELS OF NEUROFORAMINAL STENOSIS BILATERALLY DYSURIA 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 - START PHYSICAL THERAPY TOMORROW AFTERNOON - VOLTAREN TOPICALLY FOR MUSCLES - HEAT TO BACK TID WITH VOLTAREN GEL - DISCUSSED INPATIENT REHAB PENDING HOW SHE DOES WITH IV STEROIDS AND THERAPY - WILL GET PT SCHEDULED FOR EVAL BY PAIN MEDICINE PHYSICIAN DEPENDING ON HOW SHE DOES WITH THE ABOVE MENTIONED TREATMENTS. 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 HUGO SANZ MD Jan 15, 2021 13:13
[2021-01-15] MEDS ORDERED: morphine INJ 4 MG/ML 1 ML (VIAL/SYRINGE) IV NR (13:15)
[2021-01-15] MEDS ORDERED: ONDANSETRON 4 MG/2 ML (SDV) Z0FRAN IVP PRN (13:15)
[2021-01-15 14:39] LABS: BASOPHILS % (AUTO) 0 % (0-10); EOSINOPHILS % (AUTO) 0 % (0-10); HEMATOCRIT 38 % (35-52); HEMOGLOBIN 12.7 g/dL (11.5-16.0); LYMPHOCYTES # (AUTO) 0.9 10^3/uL (1.0-4.0); LYMPHOCYTES % (AUTO) 9 % (12-44); MEAN CORPUSCULAR HEMOGLOBIN 32 pg (25-34); MEAN CORPUSCULAR HGB CONC 33 g/dL (32-36); MEAN CORPUSCULAR VOLUME 96 fL (80-99); MEAN PLATELET VOLUME 9.6 fL (9.0-12.2); MONOCYTES # (AUTO) 0.6 10^3/uL (0.0-1.0); MONOCYTES % (AUTO) 5 % (0-12); NEUTROPHILS % (AUTO) 85 % (42-75); PLATELET COUNT 332 10^3/uL (130-400); WHITE BLOOD COUNT 10.6 10^3/uL (4.3-11.0)
[2021-01-15 14:51] LABS: POTASSIUM 3.9 MMOL/L (3.6-5.0)
[2021-01-15 14:52] LABS: CALCIUM 8.9 MG/DL (8.5-10.1)
[2021-01-15 14:54] LABS: TOTAL PROTEIN 6.9 GM/DL (6.4-8.2)
[2021-01-15 14:55] LABS: BILIRUBIN,TOTAL 0.4 MG/DL (0.1-1.0)
[2021-01-15 14:57] LABS: CREATININE SERUM 0.83 MG/DL (0.60-1.30)
--- NOTE | 2021-01-15 15:25 | Diagnostic Imaging Report ---
PROCEDURE: CT lumbar spine without contrast. TECHNIQUE: Multiple contiguous axial images were obtained through the lumbar spine without the use of intravenous contrast. Sagittal and coronal reformations were then performed. Auto Exposure Controls were utilized during the CT exam to meet ALARA standards for radiation dose reduction. INDICATION: Severe back pain. COMPARISON: None. FINDINGS: No acute fracture or dislocation is seen in the lumbar spine. There is slight left convexity curvature of the lumbar spine. There is generalized osteopenia. No suspicious focal osseous lesions are seen. Endplate sclerotic changes are visualized at the L2-L3 and L4-L5 levels. Degenerative changes are present in the lumbar spine with disc/osteophyte complexes and facet hypertrophy. At the L2-L3 level, there is severe spinal canal stenosis and moderate to severe right and moderate left foraminal stenosis. At the L3-L4 level, there is moderate to severe spinal canal stenosis and moderate bilateral foraminal stenosis. At the L4-L5 level, there is severe spinal canal stenosis and moderate to severe bilateral foraminal stenosis. No high density material is seen within the spinal canal. The paraspinal soft tissues demonstrate no acute abnormalities. IMPRESSION: 1. No acute fracture or dislocation in the lumbar spine. 2. Advanced degenerative changes in the lumbar spine at the L2-L3, L3-L4, and L4-L5 levels. 3. Endplate sclerotic changes at L2-L3 and L4-L5. 4. Generalized osteopenia. Dictated by: Dictated on workstation # [id number]
[2021-01-15 15:56] LABS: BILIRUBIN,URINE NEGATIVE (NEGATIVE); CLARITY,URINE SL CLOUDY; COLOR,URINE YELLOW; GLUCOSE, URINE (UA) NEGATIVE (NEGATIVE); KETONES,URINE 1+ (NEGATIVE); LEUKOCYTE ESTERASE ,URINE 2+ (NEGATIVE); NITRITE,URINE NEGATIVE (NEGATIVE); PH,URINE 7.5 (5-9); PROTEIN,URINE NEGATIVE (NEGATIVE)
[2021-01-15 16:00] VITALS: BP 133/58
[2021-01-15 16:03] LABS: AMORPHOUS SEDIMENT,UR MOD AMOR PHOSPHATE /LPF; BACTERIA,URINE NEGATIVE /HPF; RBC,URINE RARE /HPF; SQUAMOUS EPITHELIAL CELL,UR RARE /HPF; WBC,URINE RARE /HPF
[2021-01-15] MEDS: ENOXAPARIN 40 MG/0.4 ML (LOVENOX) SYR SC SCH (16:09)
[2021-01-15] MEDS: morphine INJ 4 MG/ML 1 ML (VIAL/SYRINGE) IVP PRN (16:10)
[2021-01-15 20:00] VITALS: BP 111/65
[2021-01-15] MEDS ORDERED: KETOROLAC 30 MG/ML VIAL IVP NR (20:00)
[2021-01-15] MEDS ORDERED: PANTOPRAZOLE 40 MG (PROTONIX) TAB PO NR (20:00)
[2021-01-15 23:30] VITALS: BP 103/58
[2021-01-16 04:00] VITALS: BP 113/64
[2021-01-16] MEDS: DICLOFENAC 1% GEL 100 GM (VOLTAREN) TUBE TOP SCH ×5 (04:00→21:21)
[2021-01-16] MEDS: morphine INJ 4 MG/ML 1 ML (VIAL/SYRINGE) IVP PRN ×2 (04:44→12:22)
[2021-01-16] MEDS: methylPREDNISolone 40 MG/ML (Solu-MEDROL) VIAL IV SCH ×3 (06:47→21:20)
--- NOTE | 2021-01-16 07:58 | Progress Note ---
Subjective Subjective Date Seen by Provider: Jan 16, 2021 Time Seen by Provider: 07:05 Patient feeling much better this morning. When asked what her pain was yesterday at its worst, she said it was a "12" on a scale of 1-10 and "worse than childbirth". Today, the pain has improved to a 3/10. She is able to sit up and lean forward without discomfort. She mentions that the pain radiated from her lower back to her left anterior pelvic/thigh region. She denies any numbness/tingling/weakness of the extremities. She was able to sleep well last night. She was nauseous and vomiting upon arrival yesterday, but that has resolved since the pain was treated. Review of Systems General: No Chills, No Night Sweats Pulmonary: No Dyspnea, No Cough Cardiovascular: No: Chest Pain, Palpitations Gastrointestinal: No: Nausea, Vomiting Musculoskeletal: back pain Neurological: No: Weakness, Numbness All Other Systems Reviewed All Other Systems Reviewed: Yes Objective Exam Vital Signs Vital Signs Date Time Temp Pulse Resp B/P (MAP) Pulse Ox O2 Delivery O2 Flow Rate FiO2 01/16/21 04:00 36.2 78 18 113/64 (80) 94 Room Air 01/15/21 23:30 36.4 83 18 103/58 (73) 95 Room Air 01/15/21 20:00 Room Air 01/15/21 20:00 37.2 86 20 111/65 (80) 95 Room Air 01/15/21 16:00 35.9 90 20 133/58 (83) 96 Room Air 01/15/21 14:45 Room Air 01/15/21 12:55 35.8 78 18 146/67 (93) 97 Room Air I & O 01/16/21 06:59 Intake Total 1000 ml Output Total 750 ml Balance 250 ml General Appearance: No Apparent Distress, WD/WN HEENT: PERRL/EOMI, Pharynx Normal Neck: Full Range of Motion, Supple Respiratory: Chest Non Tender, Lungs Clear, Normal Breath Sounds, No Accessory Muscle Use, No Respiratory Distress Cardiovascular: Regular Rate, Rhythm, No Edema, Normal Peripheral Pulses Gastrointestinal: Normal Bowel Sounds, No Organomegaly, No Pulsatile Mass, Non Tender, Soft Back: Normal Inspection, Vertebral Tenderness (improved) Extremity: Normal Capillary Refill, Normal Range of Motion, Non Tender, No Calf Tenderness, No Pedal Edema Neurologic/Psychiatric: Alert, Oriented x3, No Motor/Sensory Deficits, Normal Mood/Affect Skin: Normal Color, Warm/Dry Lymphatic: No Adenopathy Results Lab Laboratory Tests 01/15/21 14:21: White Blood Count 10.6, Red Blood Count 4.00, Hemoglobin 12.7, Hematocrit 38, Mean Corpuscular Volume 96, Mean Corpuscular Hemoglobin 32, Mean Corpuscular Hemoglobin Concent 33, Red Cell Distribution Width 13.9, Platelet Count 332, Mean Platelet Volume 9.6, Immature Granulocyte % (Auto) 0, Neutrophils (%) (Auto) 85H, Lymphocytes (%) (Auto) 9L, Monocytes (%) (Auto) 5, Eosinophils (%) (Auto) 0, Basophils (%) (Auto) 0, Neutrophils # (Auto) 9.0H, Lymphocytes # (Auto) 0.9L, Monocytes # (Auto) 0.6, Eosinophils # (Auto) 0.0, Basophils # (Auto) 0.0, Immature Granulocyte # (Auto) 0.0, Erythrocyte Sedimentation Rate 8, Sodium Level 138, Potassium Level 3.9, Chloride Level 106, Carbon Dioxide Level 21, Anion Gap 11, Blood Urea Nitrogen 14, Creatinine 0.83, Estimat Glomerular Filtration Rate 65, BUN/Creatinine Ratio 17, Glucose Level 123H, Calcium Level 8.9, Corrected Calcium 8.9, Total Bilirubin 0.4, Aspartate Amino Transf (AST/SGOT) 15, Alanine Aminotransferase (ALT/SGPT) 8, Alkaline Phosphatase 53, C-Reactive Protein High Sensitivity 0.30, Total Protein 6.9, Albumin 4.0 01/15/21 15:05: Urine Color YELLOW, Urine Clarity SL CLOUDY, Urine pH 7.5, Urine Specific Peetz 1.020, Urine Protein NEGATIVE, Urine Glucose (UA) NEGATIVE, Urine Ketones 1+H, Urine Nitrite NEGATIVE, Urine Bilirubin NEGATIVE, Urine Urobilinogen 0.2, Urine Leukocyte Esterase 2+H, Urine RBC (Auto) TRACE-IH, Urine RBC RARE, Urine WBC RARE, Urine Squamous Epithelial Cells RARE, Urine Crystals NONE, Urine Amorphous Sediment MOD CHAYITO PHOSPHATEH, Urine Bacteria NEGATIVE, Urine Casts NONE, Urine Mucus NEGATIVE, Urine Culture Indicated NO Assessment/Plan Assessment/Plan Assessment and Plan LUMBAR SPINE PAIN LUMBAR SPINE L2 - L5 - SPINAL STENOSIS WITH VARYING LEVELS OF NEUROFORAMINAL STENOSIS BILATERALLY DYSURIA 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 GENERALIZED OSTEOPENIA - PAIN IS SIGNIFICANTLY IMPROVED THIS MORNING - SOLUMEDROL 80MG IV TID STARTED THIS MORNING - START PHYSICAL THERAPY THIS AFTERNOON - CONTINUE VOLTAREN TOPICALLY FOR MUSCLES - HEAT TO BACK TID WITH VOLTAREN GEL - DISCUSSED INPATIENT REHAB PENDING HOW SHE DOES WITH IV STEROIDS AND THERAPY - WILL GET PT SCHEDULED FOR EVAL BY PAIN MEDICINE PHYSICIAN DEPENDING ON HOW SHE DOES WITH THE ABOVE MENTIONED TREATMENTS. 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 DVT PROPHYLAXIS WITH LOVENOX AND SCD'S GI PROPHYLAXIS WITH PPI No acute fracture or dislocation in the lumbar spine. 2. Advanced degenerative changes in the lumbar spine at the L2-L3, L3-L4, and L4-L5 levels. Supervisory-Addendum Brief Verification & Attestation Participated in pt care: history, MDM, physical Personally performed: exam, history, MDM, supervision of care Care discussed with: Medical Student Procedures: n/a Results interpretation: Verified all documentation AGREE WITH STUDENT NOTE DOCUMENTED - PT'S SON IN ROOM - HE IS IN AGREEMENT THAT HIS MOM SHOULD WAIT UNTIL AFTER THERAPY AND ANOTHER 24 HOURS OF STEROIDS - MONITOR PHYSICAL THERAPY REPORT. 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
[2021-01-16 08:00] VITALS: BP 119/62
[2021-01-16] MEDS: NS IV 1000 ML 1,000 ML IV SCH ×2 (08:07→17:53)
[2021-01-16] MEDS: PANTOPRAZOLE 40 MG (PROTONIX) TAB PO SCH (09:45)
--- NOTE | 2021-01-16 10:04 | Physical Therapy Evaluation ---
PT Evaluation-General Medical Diagnosis Admission Date Jan 15, 2021 at 12:25 Medical Diagnosis: left back pain/left flank pain/N&V Onset Date: Jan 15, 2021 Therapy Diagnosis Therapy Diagnosis: debility Height/Weight Height (Feet): 5 Height (Inches): 6.00 Weight (Pounds): 170 Precautions Precautions/Isolations: Standard Precautions Referral Physician: Umu Reason for Referral: Evaluation/Treatment Medical History Pertinent Medical History: Hypothroidism Current History Direct admit from Dr. walker due to left side pain after sweeping Reviewed History: Yes Social History Home: Single Level Current Living Status: Alone Prior Prior Level of Function SCALE: Activities may be completed with or without assistive devices. 6-Ebkyjzjbcx-ubjqyzo completes the activity by him/herself with no assistance from a helper. 5-Set-up or Clean-up Assistance-helper sets up or cleans up; patient completes activity. [place] assists only prior to or following the activity. 4-Supervision or Touching Assistance-helper provides verbal cues and/or touching/steadying and/or contact guard assistance as patient completes activity. Assistance may be provided throughout the activity or intermittently. 3-Partial/Moderate Assistance-helper does LESS THAN HALF the effort. [place] lifts, holds or supports trunk or limbs, but provides less than half the effort. 2-Substantial/Maximal Assistance-helper does MORE THAN HALF the effort. [place] lifts or holds trunk or limbs and provides more than half the effort. 1-Oyhuvnyfa-itoyfn does ALL the effort. Patient does none of the effort to complete the activity. Or, the assistance of 2 or more helpers is required for the patient to complete the activity. If activity was not attempted, code reason: 7-Patient Refused. 9-Not Applicable-not attempted and the patient did not perform the activity before the current illness, exacerbation or injury. 10-Not Attempted due to Environmental Limitations-(lack of equipment, weather restraints, etc.). 88-Not Attempted due to Medical Conditions or Safety Concerns. Bed Mobility: 6 Transfers (B,C,W/C): 6 Gait: 6 Stairs: 6 Indoor Mobility (Ambulation): Independent Stairs: Independent Prior Devices Use: None PT Evaluation-Current Subjective Patient agrees to PT. reports 2/10 left groin/hip discomfort. Pain Numeric Pain Scale: 2 Location: Left Location Body Site: Hip Pain Description: Ache Objective Patient Orientation: Normal For Age Attachments: IV ROM/Strength ROM Lower Extremities bilateral LE WFL Strength Lower Extremities 4/5 grossly bilateral LE all planes Integumentary/Posture Bowel Incontinence: No Bladder Incontinence: No Posture WFL Neuromuscular (Tone, Coordination, Reflexes) grossly intact Sensory Vision: Wears Glasses Hearing: Functional Sensation Right Lower Extremit: Intact Sensation Left Lower Extremity: Intact Transfers Roll Left to Right (QC): 6 Sit to Lying (QC): 6 Lying to Sitting/Side of Bed(Q: 6 Sit to Stand (QC): 6 Gait Does the Patient Walk?: Yes Mode of Locomotion: Walk Anticipated Mode of Locomotion: Walk Walk 10 feet (QC): 6 Walk 50 ft with 2 Turns(QC): 6 Walk 150 ft (QC): 6 Distance: 500' Gait Assistive Device: None Comments/Gait Description safe and functional with no deviation Balance Sitting Static: Normal Sitting Dynamic: Normal Standing Static: Normal Standing Dynamic: Normal Picking up an Object (QC): 6 Treatment implemented supine knee to chest stretching bilaterally and bent knee trunk rotation to stretch lumbar region Assessment/Needs 85 y.o. female, will be seen short term by skilled PT to ensure safe return to home with exercise program for lower back. Rehab Potential: Fair PT Short Term Goals Short Term Goals Time Frame: Jan 18, 2021 Roll Left & Right: 6 Sit to lyin Lying to sitting on side of be: 6 Sit to stand: 6 Chair/vum-en-njruz transfer: 6 Toilet transfer: 6 Walk 10 feet: 6 Walk 50 feet with two turns: 6 Walk 150 feet: 6 compliance with exercise program PT Plan Treatment/Plan Treatment Plan: Continue Plan of Care Treatment Plan: Education, Functional Activity Vin, Functional Strength, Gait, Safety, Therapeutic Exercise Treatment Duration: Jan 18, 2021 Frequency: 3 times per week Estimated Hrs Per Day: .25 hour per day Patient and/or Family Agrees t: Yes Time/GCodes Time In: 916 Time Out: 927 Total Billed Treatment Time: 11 Total Billed Treatment 1 visit EVModC 11 min FRIDA VARGAS PT Jan 16, 2021 10:04
[2021-01-16 12:00] VITALS: BP 100/55
[2021-01-16] MEDS: ENOXAPARIN 40 MG/0.4 ML (LOVENOX) SYR SC SCH (12:22)
[2021-01-16] MEDS ORDERED: BUPR150T14 PO (13:39)
[2021-01-16] MEDS ORDERED: LEVO75TA6 PO ×2 (13:39→14:08)
[2021-01-16] MEDS ORDERED: OMEG1CAP24 PO (13:39)
[2021-01-16] MEDS ORDERED: VIT1TABL26 PO (13:39)
[2021-01-16] MEDS ORDERED: FOLI0.8T4 PO (13:39)
[2021-01-16] MEDS ORDERED: ONDA8TAB13 PO (13:39)
[2021-01-16] MEDS ORDERED: NFBIOT1000 PO (13:39)
[2021-01-16] MEDS ORDERED: CHOL10004 PO (13:39)
[2021-01-16] MEDS ORDERED: MECL-149 PO (13:39)
[2021-01-16] MEDS ORDERED: CALC600T91 PO (13:39)
--- NOTE | 2021-01-16 14:50 | Physical Therapy Daily Note ---
PT Daily Note-Current Subjective Patient reports compliance with exercise program and agrees to PT. Pain Numeric Pain Scale: 0-No Pain Location: No Pain Reported Mental Status Patient Orientation: Normal For Age Transfers SCALE: Activities may be completed with or without assistive devices. 3-Kcfiuegims-vpgpxdi completes the activity by him/herself with no assistance from a helper. 5-Set-up or Clean-up Assistance-helper sets up or cleans up; patient completes activity. [place] assists only prior to or following the activity. 4-Supervision or Touching Assistance-helper provides verbal cues and/or touching/steadying and/or contact guard assistance as patient completes activity. Assistance may be provided throughout the activity or intermittently. 3-Partial/Moderate Assistance-helper does LESS THAN HALF the effort. [place] lifts, holds or supports trunk or limbs, but provides less than half the effort. 2-Substantial/Maximal Assistance-helper does MORE THAN HALF the effort. [place] lifts or holds trunk or limbs and provides more than half the effort. 8-Bccghebli-sotymd does ALL the effort. Patient does none of the effort to complete the activity. Or, the assistance of 2 or more helpers is required for the patient to complete the activity. If activity was not attempted, code reason: 7-Patient Refused. 9-Not Applicable-not attempted and the patient did not perform the activity before the current illness, exacerbation or injury. 10-Not Attempted due to Environmental Limitations-(lack of equipment, weather restraints, etc.). 88-Not Attempted due to Medical Conditions or Safety Concerns. Sit to Lying (QC): 6 Lying to Sitting/Side of Bed(Q: 6 Sit to Stand (QC): 6 Gait Training Does the Patient Walk?: Yes Distance: 450' Walk 10 feet (QC): 6 Walk 50 ft with 2 Turns(QC): 6 Walk 150 ft (QC): 6 Gait Assistive Device: None Exercises Supine Ex: Lower trunk rotation, Knee to chest Supine Reps: 12 Treatments Review of exercises Assessment Current Status: Excellent Progress Patient denies pain this p.m. She has been instructed to perform exercises PRN. Patient voices understanding. PT Short Term Goals Short Term Goals Time Frame: Jan 18, 2021 Roll Left & Right: 6 Sit to lyin Lying to sitting on side of be: 6 Sit to stand: 6 Chair/tmv-uq-yniif transfer: 6 Toilet transfer: 6 Walk 10 feet: 6 Walk 50 feet with two turns: 6 Walk 150 feet: 6 PT Plan Treatment/Plan Treatment Plan: Continue Plan of Care Treatment Plan: Education, Functional Activity Vin, Functional Strength, Gait , Safety, Therapeutic Exercise Treatment Duration: Jan 18, 2021 Frequency: 3 times per week Estimated Hrs Per Day: .25 hour per day Patient and/or Family Agrees t: Yes Time/GCodes Time In: 1435 Time Out: 1446 Total Billed Treatment Time: 11 Total Billed Treatment 1 visit FA 11 min FRIDA VARGAS PT Jan 16, 2021 14:50
[2021-01-16 15:30] VITALS: BP 120/58
[2021-01-16 20:00] VITALS: BP 122/57
[2021-01-16 23:58] VITALS: BP 125/61
[2021-01-17] MEDS: NS IV 1000 ML 1,000 ML IV SCH (03:58)
[2021-01-17 04:12] VITALS: BP 117/62
[2021-01-17] MEDS: methylPREDNISolone 40 MG/ML (Solu-MEDROL) VIAL IV SCH ×2 (06:00→10:38)
[2021-01-17 07:47] VITALS: BP 156/67
[2021-01-17] MEDS: DICLOFENAC 1% GEL 100 GM (VOLTAREN) TUBE TOP SCH (08:35)
[2021-01-17] MEDS: PANTOPRAZOLE 40 MG (PROTONIX) TAB PO SCH (08:35)
[2021-01-17] MEDS ORDERED: SENNA W/DOCUSATE (SENOKOT S) TABLET PO ONE (10:00)
--- NOTE | 2021-01-17 10:00 | Discharge Summary ---
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 SHE PRESENTED TO THE OFFICE TODAY WITH COMPLAINT OF ACUTE BACK PAIN AFTER SWEEPING THE FLOOR. SHE WAS IN A TREMENDOUS AMOUNT OF PAIN AND WAS UNABLE TO AMBULATE PER HER USUAL INTO OR OUT OF THE OFFICE. SHE WAS THEREFORE ADMITTED TO THE HOSPITAL BECAUSE HER PAIN HAD BECOME SO ROBUST THAT SHE WAS HAVING INTRACTABLE NAUSEA AND EMESIS FROM UNCONTROLLED PAIN. SHE INITIALLY DID NOT WANT ADMISSION, BUT AFTER MOVING ABOUT A LITTLE MORE IN THE OFFICE GETTING UP FROM THE TOILET AFTER PROVIDING A SPECIMEN FOR A UA, SHE WAS UNABLE TO TOLERATE THE PAIN AND AGREED TO ADMISSION FOR EVAL AND MONITORING AND IV PAIN MEDICATION FOR CONTROL OF HER PAIN. Discharge Summary Discharge Physical Examination Allergies: Coded Allergies: Soap (Verified Allergy, Intermediate, 10/12/11) blisters from topical application povidone-iodine (Verified Allergy, Intermediate, 10/12/11) blisters from topical application Sulfa (Sulfonamide Antibiotics) (Verified Allergy, Unknown, 10/09/11) iodine (Verified Allergy, Unknown, 10/09/11) Vitals & I&Os Vital Signs Date Time Temp Pulse Resp B/P (MAP) Pulse Ox O2 Delivery O2 Flow Rate FiO2 01/17/21 07:47 36.8 84 20 156/67 (96) 94 Room Air General Appearance: Alert, Oriented X3, Cooperative, No Acute Distress HEENT: Atraumatic, PERRLA, Mucous Memb Moist/[place] Respiratory: Clear to Auscultation, Normal Air Movement Cardiovascular: Regular Rate Abdominal: Normal Bowel Sounds, Soft, No Tenderness Extremities: No Clubbing, No Cyanosis, No Edema Neuro: Normal Gait, Strength at 5/5 X4 Ext, Cranial Nerves 3-12 NL Psych/Mental Status: Mental Status NL, Mood NL Hospital Course Was the Problem List Reviewed?: Yes LUMBAR SPINE PAIN LUMBAR SPINE L2 - L5 - SPINAL STENOSIS WITH VARYING LEVELS OF NEUROFORAMINAL STENOSIS BILATERALLY DYSURIA 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 DVT PROPHYLAXIS WITH LOVENOX AND SCD'S GI PROPHYLAXIS WITH PPI Discharge Condition at discharge IMPROVED Instructions to patient/family Please see electronic discharge instructions given to patient. Discharge Medications Reviewed and agree with Discharge Medication list on patient's Discharge Instruction sheet HUGO LOZADA MD Jan 17, 2021 10:00
[2021-01-17] MEDS ORDERED: DICL100G13 TOP (10:04)
[2021-01-17] MEDS ORDERED: ACHD5005 PO (10:04)
[2021-01-17] MEDS ORDERED: PRD20T PO (10:04)
--- NOTE | 2021-01-17 10:10 | Discharge Inst-Simple/Standard ---
Discharge Inst-Standard Reconcile Patient Problems Problems Reviewed?: Yes Discharge Medications New, Converted or Re-Newed RX: Transmitted to Pharmacy Patient Instructions/Follow Up Plan of Care/Instructions/FU: 1 week follow up with usha corrigan appt with [facility] therapy to be scheduled Activity as Tolerated: Yes Discharge Diet: Regular Diet Return to The Hospital For: any concern for worsening pain, weakness, chest pain, shortness of breath or any lifethreatening illness or injury Medication List: Active Scripts Active Hydrocodone-Acetamin 5-325 mg (Hydrocodone/Acetaminophen) 1 Each Tablet 1 Tab PO Q4H PRN Prednisone 20 Mg Tab 20 Mg PO DAILY Take 3 tabs(60mg)daily,decrease by 1/2 tab(10mg)every other day. - TAKE WITH FOOD Diclofenac Sodium 100 Gm Gel..gram. 4 Gm TOP QID APPLY TO MID AND LOW BACK AND HIP ON LEFT Reported Levothyroxine Sodium 75 Mcg Tablet 37.5 Mcg PO MO,,FR TAKES OF A 75MCG TAB Levothyroxine Sodium 75 Mcg Tablet 75 Mg PO MAHER,,,SAT Vitamin D3 (Cholecalciferol (Vitamin D3)) 25 Mcg Tablet 25 Mcg PO DAILY Wallace 3 Fish Oil Softgel (Wallace-3 Fatty Acids/Fish Oil) 1 Each Capsule.dr 1 Each PO DAILY Biotin 1,000 Mcg Tablet 1,000 Mcg PO DAILY Meclizine HCl 25 Mg Tablet 25 Mg PO QID PRN Ocuvite with Lutein Tablet (Vit A,C & E/Lutein/Minerals) 1 Each Tablet 1 Each PO DAILY Folic Acid 0.8 Mg Tablet 0.8 Mg PO DAILY Calcium (Calcium Carbonate) 600 Mg Tablet 600 Mg PO BID Bupropion HCl Sr (Bupropion HCl) 150 Mg Tablet.er 150 Mg PO BID Ondansetron Odt (Ondansetron) 8 Mg Tab.rapdis 8 Mg PO Q8H PRN My orders: Orders - HUGO LOZADA MD Patient Visit (01/16/21 ) Pt Jennifer Moderate Complexity (01/16/21 ) Patient Visit (01/16/21 ) Functional Activities, Ea 15 (01/16/21 ) Hip, Left, 2 Views (01/17/21 09:59) Abdomen, Flat & Upright/Decub (01/17/21 09:59) Senna S Tablet (Senokot S Tablet) (01/17/21 10:00) Attending Discharge Inpt/Inobs (01/17/21 10:00) HUGO LOZADA MD Jan 17, 2021 10:10
--- NOTE | 2021-01-17 10:28 | Physical Therapy Daily Note ---
PT Daily Note-Current Subjective Patient denies pain at this time. Agrees to PT. Mental Status Patient Orientation: Normal For Age Attachments: IV Transfers SCALE: Activities may be completed with or without assistive devices. 5-Tfkruhiwzu-rejlaze completes the activity by him/herself with no assistance from a helper. 5-Set-up or Clean-up Assistance-helper sets up or cleans up; patient completes activity. [place] assists only prior to or following the activity. 4-Supervision or Touching Assistance-helper provides verbal cues and/or touching/steadying and/or contact guard assistance as patient completes activity. Assistance may be provided throughout the activity or intermittently. 3-Partial/Moderate Assistance-helper does LESS THAN HALF the effort. [place] lifts, holds or supports trunk or limbs, but provides less than half the effort. 2-Substantial/Maximal Assistance-helper does MORE THAN HALF the effort. [place] lifts or holds trunk or limbs and provides more than half the effort. 0-Osfdhwszt-bjtgll does ALL the effort. Patient does none of the effort to complete the activity. Or, the assistance of 2 or more helpers is required for the patient to complete the activity. If activity was not attempted, code reason: 7-Patient Refused. 9-Not Applicable-not attempted and the patient did not perform the activity before the current illness, exacerbation or injury. 10-Not Attempted due to Environmental Limitations-(lack of equipment, weather restraints, etc.). 88-Not Attempted due to Medical Conditions or Safety Concerns. Sit to Lying (QC): 6 Lying to Sitting/Side of Bed(Q: 6 Sit to Stand (QC): 6 Gait Training Distance: 500' Walk 10 feet (QC): 6 Walk 50 ft with 2 Turns(QC): 6 Walk 150 ft (QC): 6 Gait Assistive Device: None safe and functional with no deviation Assessment Patient reports compliance with HEP and will dismiss to home on this date. PT Short Term Goals Short Term Goals Time Frame: Jan 18, 2021 Roll Left & Right: 6 Sit to lyin Lying to sitting on side of be: 6 Sit to stand: 6 Chair/qgx-zo-kdtfd transfer: 6 Toilet transfer: 6 Walk 10 feet: 6 Walk 50 feet with two turns: 6 Walk 150 feet: 6 PT Plan Treatment/Plan Treatment Plan: Discontinue PT, goals met Treatment Plan: Education, Functional Activity Vin, Functional Strength, Gait, Safety, Therapeutic Exercise Treatment Duration: Jan 18, 2021 Frequency: 3 times per week Estimated Hrs Per Day: .25 hour per day Patient and/or Family Agrees t: Yes Time/GCodes Time In: 914 Time Out: 926 Total Billed Treatment Time: 12 Total Billed Treatment 1 visit FA 12 min FRIDA VARGAS PT Jan 17, 2021 10:28
--- NOTE | 2021-01-17 10:30 | Diagnostic Imaging Report ---
INDICATION: Right hip pain COMPARISON: None. FINDINGS: Two views of the left hip demonstrate no fracture or dislocation. Minimal degenerative changes are seen involving the joint space. There is no osseous lesion. IMPRESSION: Minimal degenerative joint disease. Dictated by: Dictated on workstation # [id number]
--- NOTE | 2021-01-17 11:24 | Diagnostic Imaging Report ---
ABDOMEN, FLAT UPRIGHT/DECUB INDICATION: Flank discomfort COMPARISON: 08/08/2017 TECHNIQUE: AP view of the abdomen FINDINGS: Nonobstructive bowel gas pattern. Large volume of colonic stool. The peritoneal limb of the CON[employer] MA[employer]TENA[employer] MECH[employer]IC shunt catheter seen coursing along the right upper hemiabdomen and ultimately terminating in the pelvis. No fracture of the peritoneal catheter. No abnormal mineralizations that would suggest urinary tract calculi by radiography. 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 Mild osteoarthritis of the hips. IMPRESSION: 1. No radiographic features of urinary tract calculi. 2. Large volume of colonic stool. Dictated by: Dictated on workstation # [id number]
== END 2021-01-17 11:01 | disposition home or self-care (01) | DRG 552 ==
LOC: 4TH 12:25
PROVIDERS: ADMIT Family Medicine; ATTEND Family Medicine
DX: M48.061 Spinal stenosis, lumbar region without neurogenic claudication (principal); R30.0 Dysuria; E78.00 Pure hypercholesterolemia, unspecified; E03.9 Hypothyroidism, unspecified; F32.A Depression, unspecified; Z79.52 Long term (current) use of systemic steroids; Z91.041 Radiographic dye allergy status; Z88.2 Allergy status to sulfonamides; Z91.048 Other nonmedicinal substance allergy status
CPT/HCPCS: 36415; 72131; 73502; 74019; 80053; 81000; 85025; 85652; 86141; 87040

== ENCOUNTER → 2021-10-13 | Outpatient (CLI) | payer MEDICARE ==
[~2021-10-13] MED LIST changes: +BUPR-105 PO; +CALC600T91 PO; +CHOL10004 PO; +DICL100G13 TOP; +FOLI0.8T4 PO; +LEVO75TA6 PO; +MECL-149 PO; +NFBIOT1000 PO; +OMEG1CAP24 PO; +ONDA8TAB13 PO; +VIT1TABL26 PO
--- NOTE | 2021-10-13 13:54 | Diagnostic Imaging Report ---
PROCEDURE: CT head without contrast. TECHNIQUE: Multiple contiguous axial images were obtained through the brain without the use of intravenous contrast. Auto Exposure Controls were utilized during the CT exam to meet ALARA standards for radiation dose reduction. INDICATION: Dizziness and headache. COMPARISON: Prior head CT from 08/08/2017. FINDINGS: The right-sided SELF PAY COLLECTOR shunt tubing is again noted, similar in position to the prior exam with the tip at the midline. The degree of ventricular dilatation is less when compared with the prior exam. No sulcal effacement is identified. There is no midline shift. Shallow low density extra-axial collections are noted along the frontal convexities bilaterally. No acute intra-axial or extra-axial hemorrhage is seen. Periventricular low attenuation is noted, consistent with chronic microvascular ischemia. The cisterns are patent. The visualized paranasal sinuses are clear. IMPRESSION: The overall ventricular size has decreased since the prior head CT from 08/08/2017. There are very shallow extra-axial low-density collections along the cerebral convexities bilaterally, consistent with shallow subdural effusions. No acute intracranial hemorrhage is detected. Dictated by: Dictated on workstation # [id number]
== END ==
LOC: RAD 13:45
PROVIDERS: ATTEND Nurse Practitioner Family
DX: R42 Dizziness and giddiness (principal); R51.9 Headache, unspecified
CPT/HCPCS: 70450

== ENCOUNTER → 2022-10-01 | Outpatient (CLI) | payer MEDICARE ==
[~2022-10-01] MED LIST changes: +ALBU8.5H6 IH; -RT-ALBUINH IH
--- NOTE | 2022-10-01 16:43 | Diagnostic Imaging Report ---
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 EXAM: Axial CT scan of the brain without IV contrast with coronal and sagittal reformatted images. Auto Exposure Controls were utilized during the CT exam to meet ALARA standards for radiation dose reduction. COMPARISON: Head CT without contrast dated 10/13/2021. FINDINGS: Stable appearance and position of the ventricular shunt entering the right posterior aspect of the head with tip abutting the septum pellucidum overlying the right lateral ventricle. Ventricle sizes are stable with no hydrocephalus. There are small patchy areas of low density involving the white matter of both cerebral hemispheres, likely representing chronic small vessel ischemic disease. The brain parenchymal volume appears appropriate for patient's age. There is no intracranial hemorrhage, brain herniation or midline shift. Basal cisterns are unremarkable. The extracranial soft tissue, skull, and orbits are unremarkable. There is mild mucosal thickening involving the ethmoid sinus, sphenoid sinus, and both maxillary sinuses. The mastoid air cells are clear. IMPRESSION: 1: Stable CT scan of the brain with no interval evidence of acute intracranial process. 2: Stable appearance and position of the ventricular shunt with no hydrocephalus. Dictated by: Dictated on workstation # [id number]
== END ==
LOC: RAD 15:34
PROVIDERS: ATTEND Family Medicine
DX: G91.1 Obstructive hydrocephalus (principal); Z98.2 Presence of cerebrospinal fluid drainage device
CPT/HCPCS: 70450